=== PATIENT | female | born 1995 | race Caucasian/White ===

== ENCOUNTER 2022-07-18 04:43 | Emergency (ER) | payer SELFPAY ==
[~2022-07-18] VITALS: Ht 162.6 cm; Wt 77.4 kg
[2022-07-18 04:45] VITALS: BP 137/77
== END 2022-07-18 05:25 | disposition left against medical advice (07) ==
LOC: ER 04:43
DX: Z53.21 Procedure and treatment not carried out due to patient leaving prior to being seen by health care provider (principal)
CPT/HCPCS: 81025